=== PATIENT | female | born 1990 | race Caucasian/White ===

== ENCOUNTER 2021-09-22 17:36 | Emergency (ER) | payer BC, OTHER ==
[2021-09-22 18:36] LABS: ANION GAP 13.2 mmol/L (5-15); CHLORIDE,CL 101 mmol/L (98-107); SODIUM,NA 138 mmol/L (136-145)
[2021-09-22] MEDS ORDERED: Nitrofurantoin Monohydrate/Macrocrystalline 100 MG Cap PO ONE (19:51)
== END 2021-09-22 20:00 | disposition home or self-care (01) ==
LOC: KA.ED 17:36
DX: N30.00 Acute cystitis without hematuria (principal); R42 Dizziness and giddiness; Z88.1 Allergy status to other antibiotic agents; Z20.822 Contact with and (suspected) exposure to COVID-19
CPT/HCPCS: 36415; 70450; 80048; 81001; 81025; 85025; 87086; 87635; 99284; A9270; U0002

== ENCOUNTER 2023-01-03 17:55 | Emergency (ER) | payer BC, OTHER ==
[2023-01-03] MEDS ORDERED: Sodium Chloride 0.9% 1,000 ML IV ONE (18:04)
[2023-01-03] MEDS ORDERED: Sodium Chloride 0.9% 10 ML Syringe FLUSH PRN (18:05)
[2023-01-03 18:39] LABS: ANION GAP 14.7 mmol/L (5-15)
== END 2023-01-03 20:02 | disposition home or self-care (01) ==
LOC: KA.ED 17:55
DX: O99.891 Other specified diseases and conditions complicating pregnancy (principal); R42 Dizziness and giddiness; Z88.1 Allergy status to other antibiotic agents; Z3A.14 14 weeks gestation of pregnancy
CPT/HCPCS: 80053; 85025; 96360; 99283; 99284-25; J7030

== ENCOUNTER 2023-01-25 21:44 | Emergency (ER) | payer BC, OTHER ==
[2023-01-25] MEDS: Hydrocortisone 2.5% Crm 30 GM Tube TOP ONE (22:36)
== END 2023-01-25 22:41 | disposition home or self-care (01) ==
LOC: KA.ED 21:44
DX: L25.9 Unspecified contact dermatitis, unspecified cause (principal); Z88.1 Allergy status to other antibiotic agents; Z86.16 Personal history of COVID-19
CPT/HCPCS: 99282